=== PATIENT | male | born 1995 | race Caucasian/White ===

== ENCOUNTER 2017-12-04 20:11 | Emergency (ER) | payer SELFPAY | END 2017-12-04 20:47 | disposition left against medical advice (07) | LOC: FTE 20:11 | DX: Z53.21 Procedure and treatment not carried out due to patient leaving prior to being seen by health care provider (principal) ==

== ENCOUNTER 2017-12-05 19:58 | Emergency (ER) | payer MEDICAID ==
[2017-12-05] MEDS: IBUPROFEN 600 MG TAB PO (22:16)
== END 2017-12-06 | disposition home or self-care (01) ==
LOC: FTE 12-06
DX: S06.0X0A Concussion without loss of consciousness, initial encounter (principal); V89.2XXA Person injured in unspecified motor-vehicle accident, traffic, initial encounter
CPT/HCPCS: 72040; 99283-25